=== PATIENT | female | born 1995 | race African-American/Black ===

== ENCOUNTER 2017-07-17 13:01 | Emergency (ER) | payer OTHER ==
[~2017-07-17] VITALS: Ht 165.1 cm; Wt 50.7 kg
[~2017-07-17 13:01] MED LIST: NAPROSYN500 MG PO; TYLENOL WITH C1 EACH PO; VIBRAMYCIN100 MG PO
[2017-07-17] MEDS ORDERED: PERCOCET 5/31 TABLET PO (15:34)
[2017-07-17] MEDS ORDERED: ATIVAN1 MG PO (15:35)
[2017-07-17 15:59] VITALS: BP 109/67
== END 2017-07-17 16:00 | disposition home or self-care (01) ==
LOC: EME 13:01
DX: S42.022A Displaced fracture of shaft of left clavicle, initial encounter for closed fracture (principal); W19.XXXA Unspecified fall, initial encounter; Y92.219 Unspecified school as the place of occurrence of the external cause; G80.9 Cerebral palsy, unspecified; Z88.2 Allergy status to sulfonamides
CPT/HCPCS: 71045; 73030; 73060; 73090; 99281; 99283